=== PATIENT | female | born 1955 | race Hispanic/Latino ===

== ENCOUNTER 2020-12-19 11:44 | Outpatient (CLI) | payer OTHER | END 2020-12-19 11:45 | disposition home or self-care (01) | LOC: NAV RAD 11:44 | PROVIDERS: ATTEND Family Medicine | DX: M25.561 Pain in right knee (principal); M25.562 Pain in left knee; M17.0 Bilateral primary osteoarthritis of knee; M11.261 Other chondrocalcinosis, right knee ==